=== PATIENT | female | born 1960 | race Caucasian/White ===

== ENCOUNTER 2025-02-04 13:51 | Day surgery (SDC) | payer MEDICARE, MEDICAID ==
[2025-02-04] MEDS: Lactated Ringers 1,000 ML IV SCH (12:55)
[~2025-02-04 13:51] MED LIST: Propofol 200 MG/20 ML SDV ONE; fentaNYL 100 MCG/2 ML SDV ONE
== END 2025-02-04 16:45 | disposition home or self-care (01) ==
LOC: VM.SDS 13:51
PROVIDERS: ATTEND Family Medicine
DX: Z12.11 Encounter for screening for malignant neoplasm of colon (principal); R19.5 Other fecal abnormalities; E66.9 Obesity, unspecified; Z68.33 Body mass index [BMI] 33.0-33.9, adult; Z79.899 Other long term (current) drug therapy
CPT/HCPCS: G0121; J2704; J3010; J7120; 00812